=== PATIENT | male | born 1995 | race Hispanic/Latino ===

== ENCOUNTER 2021-10-11 01:04 | Emergency (ER) | payer OTHER ==
[~2021-10-11] VITALS: Ht 175.3 cm; Wt 79.4 kg
[2021-10-11] MEDS ORDERED: BIKTARVY 30-121 EACH PO (01:19)
[2021-10-11] MEDS ORDERED: FLOMAX0.4 MG PO (01:19)
[2021-10-11] MEDS ORDERED: REMERON15 MG PO (01:20)
[2021-10-11] MEDS ORDERED: ABILIFY5 MG PO (01:20)
[2021-10-11] MEDS ORDERED: VALACYCLOVIR500 MG PO (01:20)
[2021-10-11] MEDS ORDERED: FLUOXETINE HCL10 MG PO (01:20)
[2021-10-11] MEDS ORDERED: BACTRIM DS TAB1 EACH PO (01:34)
== END 2021-10-11 01:41 | disposition home or self-care (01) ==
LOC: ED 01:04
DX: L73.9 Follicular disorder, unspecified (principal)
CPT/HCPCS: 99282; A9270